=== PATIENT | female | born 1990 | race Caucasian/White ===

== ENCOUNTER 2020-01-02 01:01 | Emergency (ER) | payer BC, OTHER ==
[~2020-01-02] VITALS: Ht 167.7 cm; Wt 120.0 kg
--- NOTE | 2020-01-02 01:24 | ED Back Pain ---
General Stated Complaint: BACK PAIN Source of Information: Patient Exam Limitations: No Limitations History of Present Illness Date Seen by Provider: Jan 02, 2020 Time Seen by Provider: 01:10 Initial Comments The patient is a 29-year-old female who presents for evaluation of right upper back discomfort wrapping around to the side of the chest wall. She states that she has had a cough for the last 2-3 days and after coughing noticed a sudden sharp discomfort. She is concerned that she may have fractured a rib. She says the pain is worse with coughing, breathing deeply, moving or pressing on the area. She does smoke cigarettes and I did encourage her to quit. She denies hemoptysis, shortness of breath, fevers or chills, nausea or vomiting, abdominal pain, dizziness or syncope. She is alert and oriented 4, calm, and appears to be in no distress this time. Location: Other (right upper rib pain) Timing/Duration: 2-3 Days Severity: Moderate Pain/Injury Location: Back, Chest Method of Injury: Other (cough) Associated Symptoms: denies symptoms Allergies and Home Medications Allergies Coded Allergies: No Known Drug Allergies (Unverified , 01/02/20) Patient Home Medication List Home Medication List Reviewed: Yes Review of Systems Constitutional: no symptoms reported EENTM: no symptoms reported Respiratory: cough, other (right upper posterior rib pain) Cardiovascular: no symptoms reported Gastrointestinal: no symptoms reported Genitourinary: no symptoms reported Musculoskeletal: no symptoms reported Skin: no symptoms reported Psychiatric/Neurological: No Symptoms Reported All Other Systems Reviewed Negative Unless Noted: Yes Past Ulyqkjr-Mwilbl-Mkygbt Hx Past Med/Social Hx: Reviewed Nursing Past Med/Soc Hx Patient Social History Recent Foreign Travel: No Contact w/Someone Who Travel: No Physical Exam Vital Signs Vital Signs - First Documented 01/02/20 01:08 Temp 36.5 Pulse 78 Resp 16 B/P (MAP) 140/91 (107) Pulse Ox 97 O2 Delivery Room Air Capillary Refill : Height, Weight, BMI Height: '" Weight: lbs. oz. kg; BMI Method: General Appearance: No Apparent Distress, WD/WN, Obese HEENT: PERRL/EOMI, Pharynx Normal Neck: Full Range of Motion, Non Tender, Supple Cardiovascular: Regular Rate, Rhythm, No Edema, No Murmur Respiratory: Lungs Clear, Normal Breath Sounds, No Accessory Muscle Use, No Respiratory Distress, Other (ttp over posterolateral rib #4-5) Gastrointestinal: Normal Bowel Sounds, No Organomegaly, Non Tender, Soft Back: No CVA Tenderness, No Vertebral Tenderness Extremity: Normal Capillary Refill, Normal Inspection, Non Tender, No Calf Tenderness Neurologic/Psychiatric: Alert, Oriented x3, No Motor/Sensory Deficits, Normal Mood/Affect Skin: Normal Color, Warm/Dry Progress/Results/Core Measures Results/Orders My Orders Orders - CHIDI MOORE DO Ribs 2-3 View Right (01/02/20 01:16) Ketorolac Injection (Toradol Injection) (01/02/20 01:30) Hydrocodone/Apap 5/325 Tablet (Lortab 5 (01/02/20 01:30) Vital Signs/I&O 01/02/20 01:08 Temp 36.5 Pulse 78 Resp 16 B/P (MAP) 140/91 (107) Pulse Ox 97 O2 Delivery Room Air Progress Progress Note : Progress Note @0130 - rib series is unremarkable. The patient's pain is completely reproducible on palpation. The patient has been given a Toradol injection and Carmichaels for extended pain relief as the pharmacies are closed. The patient likely has a intercostal muscle strain. Advised follow-up with her PCP in the next 1-2 days and stopping smoking. Advised the patient to return to the emergency Department immediately for shortness of breath, difficult breathing, new or worsening symptoms. Departure Impression Primary Impression: Rib pain on right side Additional Impression: Intercostal muscle strain Disposition: HOME, SELF-CARE Condition: Stable Departure-Patient Inst. Decision time for Depature: 01:33 Referrals: SELFALLYSON MD (PCP/Family) Primary Care Physician Patient Instructions: Pleuritic Chest Pain, Upper Back Pain (DC) Add. Discharge Instructions: Take the prescribed medicine as needed. Return to the emergency department immediately for new or worsening symptoms. Follow-up with your doctor in the next 1-2 days. Stop smoking. Scripts Hydrocodone/Acetaminophen (HYDROcodone/APAP 5 MG/325 MG TAB) 1 Each Tablet 1 TAB PO Q4-6HR for Pain MDD 10 TABS for 4 Days, #12 TAB Prov: CHIDI MOORE DO 01/02/20 CHIDI MOORE DO Jan 02, 2020 01:24
[2020-01-02] MEDS ORDERED: KETOROLAC 60 MG/2 ML VIAL IM ONE (01:30)
[2020-01-02] MEDS ORDERED: HYDROcodone/APAP 5 MG/325 MG (LORTAB) TAB PO ONE (01:30)
[2020-01-02] MEDS ORDERED: HYDR-4226 PO (01:34)
[2020-01-02 01:38] VITALS: BP 140/91
--- NOTE | 2020-01-02 06:55 | Diagnostic Imaging Report ---
INDICATION: Right posterior rib pain post cough. TECHNIQUE: 3 views right ribs. CORRELATION STUDY: None FINDINGS: No acute displaced right-sided rib fracture deformity. Visualized right lung is clear without evidence for infiltrate, effusion or pneumothorax. IMPRESSION: 1. Negative for acute displaced right rib fracture. Dictated by: Dictated on workstation # [id number]
--- OUTSIDE RECORDS SUMMARY | 2020-01-06 02:33 | XMS REPORT | Continuity of Care Document ---
Author Author [facility] Organization [facility] Address Unknown Phone Unavailable Care Team Providers Care Equalizer Operator Name Role Phone YAZ ROCA DO PCP Insurance Providers Payer Name Policy Number Subscriber Name Relationship [employer] [id number] Gio Escalona Ii S 02 Advance Directives Directive Response Recorded Date/Time Patient Resuscitation Status Full Code 04/29/15 6: 48am Chief Complaint and Reason for Visit Reason for Visit Vaginal delivery Problems Medical Problems Problem Onset Date Status Vaginal delivery Unknown Active Medications Medication Dose Route Sig Days/Qty Instructions Order Date Disc ontinued Date Status Levothyroxine Sodium PO DAILY 04/30/09 Active [Acetaminophen/Codeine] 1-2 Ea PO Q4H PRN Perineal or severe pain 20 Qty 04/30/15 Active Ibuprofen 800 Mg PO EVERY 8 HOURS PRN PRN CRAMPS 30 Qty 0 04/30/15 Active Azithromycin 2 Tab PO DAILY PRN . 04/30/15 Active [tussinex] 1 Tsp PO Every 12 hours as needed PRN COUGH 04/30/15 Active Social History Social History Problem Response Recorded Date/Evangelista e Smoking Status Former smoker 04/29/2015 4:04am Query Response Start Date Stop Date Smoking Status Former smoker Hospital Discharge Instructions Medication Information Medication information Medications taken today: Motrin 800 at 1:50pm Percocet 5/325 at 5:18pm Discharge Instructions Provider Instructions Dismiss Date: Apr 30, 2015 Dismiss: Home Diet: Return to Previous Activity: As Tolerated Physician Follow-up Appt #1: Dr Roca [phone] F/U Appt: One Month Nursing Instructions Follow up Appointment #1 Physician Follow-up Appointment: Dr Roca [id number] Call for Appointment: Yes Comment: One month Diet: Return to Previous Activity: As Tolerated Pain Management Brochure given: Yes Plan of Care Discharge Date 04/30/15 8:25am Disposition 01 HOME, SELF-CARE Instructions/Education Provided OBG Surgical Site Infections (GEN) Prescriptions See Medications Section Functional Status No functional status results. Allergies, Adverse Reactions, Alerts Allergen Type Severity Reaction Status Last Updated No Known Allergies Active Immunizations Name Given Type Pneumonia Vaccine Received No Historical pneumococcal polysaccharide [id number] 04/30/15 Admini stered Vital Signs Acute Vital Signs Vital Response Date/Time Blood Pressure 116/81 mm Hg Blood Pressure Mean 101 mm Hg Blood Pressure Mean 93 mm Hg Temperature (Fahrenheit) 97.9 degrees F (96.0 - 99.9) Temperature (Calculated Celsius) 36.61966 degrees C Temperature Source Oral Temp 97.3 degrees F (96.0 - 99.9) Temperature (Calculated Celsius) 36.80861 degrees C Pulse Pulse Rate (adult) 78 bpm (60 - 100) Pulse Rate (adult) 63 bpm (60 - 100) Respiratory Rate 18 breaths per minute (10 - 20) Respiratory Rate 19 bpm (10 - 20) Results Test Source Date Result Interp. Ref. Range Comments D-Dimer Quantitative (PE/DVT) April 30, 2015 12:05pm 226 ng/m L <230 Results <230 ng/mL yeild a negativepredictability for DVT or PE Alanine Aminotransferase (ALT/SGPT) March 05, 2010 9:09pm 14 U /L N 5-50 ROOM/COMMENTS 04 Albumin March 05, 2010 9:09pm 3.9 gm/dL N 3.2-5.0 ROOM/COMMENTS 04 Albumin/Globulin Ratio March 05, 2010 9:09pm 1.4 N 1.4-2.4 ROOM/COMMENTS 04 Alkaline Phosphatase March 05, 2010 9:09pm 73 U/L N 50-130 ROOM/COMMENTS 04 Amylase Level March 05, 2010 9:09pm 56 U/L N 37-127 ROOM/COMMENTS 04 Anion Gap March 05, 2010 9:09pm 9.7 N 6-13 ROOM/COMMENTS 04 Aspartate Amino Transf (AST/SGOT) March 05, 2010 9:09pm 20 U/L N 5-55 ROOM/COMMENTS 04 BUN/Creatinine Ratio March 05, 2010 9:09pm 17.9 ROOM/COMMENTS 04 Basophils # (Auto) April 28, 2015 3:25pm 0.0 K/uL N 0-0.2 Basophils (%) (Auto) April 28, 2015 3:25pm 0.4 % N 0-1 Blood Urea Nitrogen March 05, 2010 9:09pm 14 mg/dL N 8-25 ROOM/COMMENTS 04 Calcium Level March 05, 2010 9:09pm 8.7 mg/dL N 8.2-10 .6 ROOM/COMMENTS 04 Carbon Dioxide Level March 05, 2010 9:09pm 22 mEq/L N 22-34 ROOM/COMMENTS 04 Chloride Level March 05, 2010 9:09pm 107 mEq/L N 98-11 6 ROOM/COMMENTS 04 Creatinine March 05, 2010 9:09pm 0.78 mg/dL L 0.9-1.6 ROOM/COMMENTS 04 Eosinophils # (Auto) April 28, 2015 3:25pm 0.1 K/uL N 0-0.8 Eosinophils (%) (Auto) April 28, 2015 3:25pm 1.1 % N 0-7.0 Globulin March 05, 2010 9:09pm 2.8 gm/dL N 2.0-3.0 ROOM/COMMENTS 04 Glomerular Filtration Rate Calc March 05, 2010 9:0 9pm Test not performedPATIENT LESS THAN 19 YEARS OLD Hematocrit April 30, 2015 5:15am 31.5 % L 38.0-47. 0 COMMENTS? HH in morning following delivery or at least 12 hour post deliver Hemoglobin April 30, 2015 5:15am 10.6 g/dL DL 12.0-16. 0 COMMENTS? HH in morning following delivery or at least 12 hour post deliver Immature Blood Cells March 05, 2010 9:09pm 0.2 X10.e3/U N 0-0.4 ROOM/COMMENTS 04 Immature Granulocyte # (Auto) April 28, 2015 3:25pm 0.05 K/uL N 0-0.40 Immature Granulocyte % (Auto) April 28, 2015 3:25pm 0.5 % N 0-0.5 Lipase March 05, 2010 9:09pm 22 U/L N 8-57 ROOM/COMMENTS 04 Lymphocytes # (Auto) April 28, 2015 3:25pm 1.9 K/uL N 0.9-5.2 Lymphocytes (%) (Auto) April 28, 2015 3:25pm 17.6 % N 16.0-44.0 Mean Corpuscular Hemoglobin April 28, 2015 3:25pm 28.9 pg N 26.0-33.0 Mean Corpuscular Hemoglobin Concent April 28, 2015 3:25pm 3 3.5 g/dL N 31.0-36.0 Mean Corpuscular Volume April 28, 2015 3:25pm 86.2 fL N 82.0-100.0 Mean Platelet Volume April 28, 2015 3:25pm 11.5 fL H 7.0-11.0 Monocytes # (Auto) April 28, 2015 3:25pm 0.5 K/uL N 0.16-1.0 Monocytes (%) (Auto) April 28, 2015 3:25pm 4.9 % N 2.0-9.0 Neutrophils # (Auto) April 28, 2015 3:25pm 8.4 K/uL H 1.9-8.0 Neutrophils (%) (Auto) April 28, 2015 3:25pm 75.5 % H 42.0-75.0 Nucleated Red Blood Cells # April 28, 2015 3:25pm 0.00 K/uL N 0.0-0.012 Nucleated Red Blood Cells % April 28, 2015 3:25pm 0.0 /100WBC N 0-0 Platelet Count April 28, 2015 3:25pm 199 K/uL N 130- 400 Potassium Level March 05, 2010 9:09pm 3.7 mEq/L N 3.5- 5.1 ROOM/COMMENTS 04 RDW Standard Deviation April 28, 2015 3:25pm 45.0 fL N 36.4-46.3 Random Glucose March 05, 2010 9:09pm 113 mg/dL N 65-11 5 ROOM/COMMENTS 04 Red Blood Count April 28, 2015 3:25pm 4.26 M/uL N 4.2 0-5.40 Red Cell Distribution Width April 28, 2015 3:25pm 14.6 % H 11.5-14.5 Sodium Level March 05, 2010 9:09pm 135 mEq/L N 133-145 ROOM/COMMENTS 04 Total Bilirubin March 05, 2010 9:09pm 0.5 mg/dL N 0.1- 1.3 ROOM/COMMENTS 04 Total Protein March 05, 2010 9:09pm 6.7 gm/dL N 6.1-8. 2 ROOM/COMMENTS 04 Urine Amorphous Sediment December 01, 2010 2:09pm 4+ Urine Appearance April 29, 2015 12:40am Clear HAS SPECIMEN BEEN OBTAINED/COLLECTED? Y Urine Bacteria December 01, 2010 2:09pm Trace NEGATIVE Urine Bilirubin April 29, 2015 12:40am 1+ NE GATIVE HAS SPECIMEN BEEN OBTAINED/COLLECTED? Y Urine Casts December 01, 2010 2:09pm None /lpf NON E Urine Color April 29, 2015 12:40am Yellow HAS SPECIMEN BEEN OBTAINED/COLLECTED? Y Urine Crystals December 01, 2010 2:09pm None /hpf NONE Urine Epithelial Cells December 01, 2010 2:09pm Few /lpf Urine Glucose (UA) April 29, 2015 12:40am Negative NEGATIVE HAS SPECIMEN BEEN OBTAINED/COLLECTED? Y Urine Human Chorionic Gonadotropin March 05, 2010 10:08pm Nega tive NEG ROOM/COMMENTS 04 Urine Ketones April 29, 2015 12:40am 1+ NEGA TIVE HAS SPECIMEN BEEN OBTAINED/COLLECTED? Y Urine Leukocyte Esterase April 29, 2015 12:40am Negative NEGATIVE HAS SPECIMEN BEEN OBTAINED/COLLECTED? Y Urine Mucus December 01, 2010 2:09pm None NEG ATIVE Urine Nitrate April 29, 2015 12:40am Negative NEGA TIVE HAS SPECIMEN BEEN OBTAINED/COLLECTED? Y Urine Occult Blood April 29, 2015 12:40am Negative NEGATIVE HAS SPECIMEN BEEN OBTAINED/COLLECTED? Y Urine Other December 01, 2010 2:09pm Not Performed Urine Protein April 29, 2015 12:40am Trace NEGA TIVE HAS SPECIMEN BEEN OBTAINED/COLLECTED? Y Urine RBC December 01, 2010 2:09pm None /hpf NONE Urine Specific [place] April 29, 2015 12:40am 1.025 1.005-1.030 HAS SPECIMEN BEEN OBTAINED/COLLECTED? Y Urine Urobilinogen April 29, 2015 12:40am 2.0 E.U./dL 0.2-1.0 HAS SPECIMEN BEEN OBTAINED/COLLECTED? Y Urine WBC December 01, 2010 2:09pm 0-1 /hpf NONE Urine WBC Clumps December 01, 2010 2:09pm None NONE Urine pH April 29, 2015 12:40am 6.5 4.5-8.0 HAS SPECIMEN BEEN OBTAINED/COLLECTED? Y White Blood Count April 28, 2015 3:25pm 11.1 K/uL H 5 .0-10.0 Urine Culture Urine,Clean Catch December 01, 2010 2:09pm Procedures Procedure Status Date Provider(s) ligation of fallopian tube completed 04/29/15 INOCENTE NICOLAS M.D Encounters Encounter Location Date/Time Discharged Inpatient Katherine Feng [facility] 04/28/15 1 0:25pm Recent Diagnosis Vaginal delivery
== END 2020-01-02 01:39 | disposition home or self-care (01) ==
LOC: ER FS 01:05
DX: S29.011A Strain of muscle and tendon of front wall of thorax, initial encounter (principal); F17.210 Nicotine dependence, cigarettes, uncomplicated; X58.XXXA Exposure to other specified factors, initial encounter
CPT/HCPCS: 71100

== ENCOUNTER → 2021-04-13 | Outpatient (CLI) | payer SELFPAY ==
[~2021-04-13] MED LIST: HYDR-4226 PO
--- NOTE | 2021-04-13 14:01 | Diagnostic Imaging Report ---
CLINICAL INDICATION: Patient with chronic low back pain with right leg pain. EXAM: MRI of the lumbar spine performed without IV contrast. Sagittal T2, sagittal T1, sagittal T2 fat-sat, axial T1, and axial T2. COMPARISON: None. FINDINGS: There is chronic bilateral L5 spondylolysis with no marrow edema or adjacent soft tissue inflammatory changes. There is 6 mm of grade 1 anterolisthesis of L5 on S1. There is uncovering of the posterior aspect of the disc with broad posterior disk herniation which extends into the foraminal regions bilaterally (right side more than the left). There is severe central canal stenosis with encroachment upon the exiting right L5 nerve root. There is also severe left neuroforaminal narrowing with encroachment upon the exiting left L5 nerve root. There are mild to moderate bilateral degenerative changes/facet arthropathy. There is mild to moderate loss of disk space height and low T2 degenerative disk signal changes. There is no significant central canal narrowing at the L5-S1 level. There is a small right paracentral T11-T12 disk bulge which causes no significant central canal or neuroforaminal narrowing. There is a small intraosseous hemangioma within the L1 vertebra. There are minimal Modic type II degenerative signal changes anteriorly at the T11-T12 region. The remainder of the lumbar spine shows that the intervertebral disk heights are maintained. There are chronic Schmorl's nodes involving the T11 through the L5 levels with no marrow edema. There is no significant paraspinal soft tissue abnormality. The visualized portions of the distal thoracic spinal cord, conus medullaris, and cauda equina nerve roots are unremarkable. The conus medullaris tip is seen at the lower L1 vertebral body level. IMPRESSION: 1: There is chronic bilateral L5 spondylolysis with associated grade 1 anterolisthesis of L5 on S1. There is associated broad posterior disk herniation which extends into the foraminal regions bilaterally. There is severe bilateral neuroforaminal narrowing with encroachment upon the exiting bilateral L5 nerve roots. 2: There is a small T11-T12 right paracentral disk bulge. There is no significant central spinal canal or neuroforaminal narrowing. 3: The remainder of the lumbar spine shows no other significant abnormality. Dictated by: Dictated on workstation # [id number]
== END ==
LOC: RAD 10:41
PROVIDERS: ATTEND Family Medicine
DX: M47.26 Other spondylosis with radiculopathy, lumbar region (principal); M51.24 Other intervertebral disc displacement, thoracic region; M51.27 Other intervertebral disc displacement, lumbosacral region; M48.061 Spinal stenosis, lumbar region without neurogenic claudication; M43.17 Spondylolisthesis, lumbosacral region
CPT/HCPCS: 72148

== ENCOUNTER 2021-05-19 22:39 | Emergency (ER) | payer SELFPAY ==
[~2021-05-19] VITALS: Ht 165.1 cm; Wt 129.3 kg
[2021-05-19 22:45] VITALS: BP 137/87
[2021-05-19] MEDS ORDERED: HYDROcodone/APAP 5 MG/325 MG (LORTAB) TAB PO ONE (23:00)
--- NOTE | 2021-05-19 23:00 | ED Upper Extremity ---
General Chief Complaint: Trauma-Non Activation Stated Complaint: LEFT HAND AND LEG INJ Nursing Triage Note: LEFT HAND AND LEFT THIGH PAIN AFTER FALLING OFF PORCH AT HOME Source: patient History of Present Illness Date Seen by Provider: May 19, 2021 Time Seen by Provider: 22:35 Allergies and Home Medications Allergies Coded Allergies: No Known Drug Allergies (Unverified , 01/02/20) Home Medications Hydrocodone/Acetaminophen 1 Each Tablet, 1 TAB PO Q4-6HR Prescribed by: CHIDI MOORE on 01/02/20 0134 Patient Home Medication List Home Medication List Reviewed: Yes Past Bvxlhwh-Mneyyk-Skelyz Hx Patient Social History Tobacco Use?: No Smoking Status: Never a Smoker Substance use?: No Alcohol Use?: No Seasonal Allergies Seasonal Allergies: No Past Medical History Surgeries: Yes Tubal Ligation Respiratory: No Cardiac: No Neurological: No 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 oz. kg; 47.00 BMI Method: Progress/Results/Core Measures Results/Orders My Orders Orders - PRABHAKAR PERRY DO Wrist 3 View Left (05/19/21 22:51) Hydrocodone/Apap 5/325 Tablet (Lortab 5 (05/19/21 23:00) Ice: Apply To Affected Area (05/19/21 22:51) Medications Given in ED Current Medications Medications Dose Ordered Sig/Bing Route Start Time Stop Time Status Last Admin Dose Admin Acetaminophen/ Hydrocodone Bitart 1 ea ONCE ONCE PO 05/19/21 23:00 05/19/21 23:01 05/19/21 22:57 1 EA Vital Signs/I&O 05/19/21 22:45 Temp 36.9 Pulse 97 Resp 17 B/P (MAP) 137/87 (104) O2 Delivery Room Air Blood Pressure Mean: 104 Departure Impression Primary Impression: Left wrist sprain Disposition: 01 HOME, SELF-CARE Condition: Stable Departure-Patient Inst. Decision time for Depature: 23:00 Referrals: SELF,ALLYSON CASAS (PCP/Family) Primary Care Physician Patient Instructions: Wrist Sprain ED Add. Discharge Instructions: Please wear splint, apply ice, take ibuprofen for pain. Contact the ED tomorrow morning for official x-ray result. Follow-up with your PCP next week if symptoms persist. All discharge instructions reviewed with patient and/or family. Voiced understanding. PRABHAKAR PERRY DO May 19, 2021 23:00
--- NOTE | 2021-05-20 06:01 | Diagnostic Imaging Report ---
INDICATION: Left wrist injury from a fall 3 views of the left wrist show no fracture, dislocation or other acute abnormalities. IMPRESSION: Negative left wrist Dictated by: Dictated on workstation # [id number]
== END 2021-05-19 23:05 | disposition home or self-care (01) ==
LOC: EDUNIT# 22:39 → ER FS 22:40
DX: S63.502A Unspecified sprain of left wrist, initial encounter (principal); W13.0XXA Fall from, out of or through balcony, initial encounter
CPT/HCPCS: 73110

== ENCOUNTER 2022-09-12 08:24 | Emergency (ER) | payer MEDICAID, OTHER ==
[~2022-09-12] VITALS: Ht 167.7 cm; Wt 107.9 kg
[2022-09-12] MEDS ORDERED: LIDOCAINE 1% INJ 20 ML VIAL INJ STA (08:29)
[2022-09-12] MEDS ORDERED: LIDOCAINE 1% INJ 20 ML VIAL ONE (08:29)
[2022-09-12] MEDS ORDERED: TETANUS,DIPTH,PERTUSS P/F (BOOSTRIX) 0.5 ML VIAL IM ONE (08:30)
--- NOTE | 2022-09-12 08:31 | ED Fall/Injury ---
General Stated Complaint: LEG FOREIGN OBJECT Source: patient History of Present Illness Date Seen by Provider: Sep 12, 2022 Time Seen by Provider: 08:24 Initial Comments 32-year-old female presenting with cut to her left thigh. She was coming down from a tree stand and was on the second to the last rung when she slipped and fell. She had been carrying arrows in 1 had cut into her leg through 3 layers of clothing. She denies any other injuries. She did not hit her head or get knocked out. She denies any other pain. She has some burning pain to the laceration. She is unsure of her last tetanus booster. She was able to control bleeding with holding pressure. Occurred: just prior to arrival Severity: mild Injuries/Pain Location: lower extremity (Left thigh) Context: slipped Loss of Consciousness: no loss of consciousness Modifying Factors: Worse With Movement Associated Symptoms (Fall): No Abdominal Pain, No Chest Pain, No Confusion, No Dizziness, No Headache, No Lightheadedness, No Muscle Spasms, No Neck Pain, No Ringing in Ears, No Seizures, No Shortness of Air, No Slurred Speech, No Trouble Walking, No Vision Changes Allergies and Home Medications Allergies Coded Allergies: No Known Drug Allergies (Unverified , 01/02/20) Patient Home Medication List Home Medication List Reviewed: Yes Cephalexin (Cephalexin) 500 Mg Capsule, 500 MG PO TID Prescribed by: BROOKS JOYCE on 09/12/22 0912 Hydrocodone/Acetaminophen (Hydrocodone/Acetaminophen 5 MG/325 MG TAB) 1 Each Tablet, 1 TAB PO Q4-6HR Prescribed by: CHIDI MOORE on 01/02/20 0134 Review of Systems Review of Systems Constitutional: No chills, No fever Eyes: No Symptoms Reported Ears, Nose, Mouth, Throat: no symptoms reported Respiratory: no symptoms reported Cardiovascular: no symptoms reported Gastrointestinal: no symptoms reported Genitourinary: no symptoms reported Musculoskeletal: see HPI Skin: see HPI Psychiatric/Neurological: Denies Numbness, Denies Paresthesia Past [place]pp[place]-Kwhfey Hx Patient Social History Tobacco Use?: No Use of E-Cig and/or Vaping dev: No Substance use?: No Seasonal Allergies Seasonal Allergies: No Past Medical History Surgery/Hospitalization HX: Sciatica, bipolar depression and anxiety, chronic low back pain Surgeries: Yes Tubal Ligation Respiratory: No Cardiac: No 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 oz. 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 as tested, no motor/sensory deficits, alert, oriented x 3 Skin: warm/dry Kalpesh Coma Score Best Eye Response: (4) Open Spontaneously Best Verbal Response: (5) Oriented Best Motor Response: (6) Obeys Commands Harlan Total: 15 Procedures/Interventions Wound Location: Lower Extremities (left leg just above knee medial aspect) Wound Length (cm): 2.2 Wound's Depth, Shape: linear, sub Q Wound Explored: clean Irrigated w/ Saline (ccs): 250 Betadine Prep?: Yes Anesthesia: 1% Lidocaine Volume Anesthetic (ccs): 6 Suture: Ethlion Suture Size: 4-0 Number of Sutures: 5 Sterile Dressing Applied?: Yes Progress After obtaining verbal consent from the patient the wound was anesthetized with 6 mL of 1% plain lidocaine. Then using sterile water and Betadine solution the wound was irrigated with 250 mL of solution. There were no foreign body seen or visualized. Patient tolerated this well without any immediate complication. Using 4-0 Ethilon a total of 5 simple interrupted stitches were used to approximate wound edges. Wound edges were well approximated. Patient had no immediate complication with the procedure. Counseled on follow-up and return precautions as well as management of stitches. Progress/Results/Core Measures Results/Orders My Orders Orders - BROOKS JOYCE MD Dipht,Pertuss(Acell),Tet Adult (Boostrix (09/12/22 08:30) Lidocaine 1% Inj 20 Ml (Xylocaine 1% Inj (09/12/22 08:29) Lidocaine 1% Inj 20 Ml (Xylocaine 1% Inj (09/12/22 08:29) Medications Given in ED Current Medications Medications Dose Ordered Sig/Bing Route Start Time Stop Time Status Last Admin Dose Admin Diphtheria/ Tetanus/Acell Pertussis 0.5 ml ONCE ONCE IM 09/12/22 08:30 09/12/22 08:31 DC 09/12/22 09:15 0.5 ML Vital Signs/I&O 09/12/22 08:25 Temp 36.0 Pulse 65 Resp 20 B/P (MAP) 137/87 (104) Pulse Ox 98 O2 Delivery Room Air Progress Progress Note : Progress Note Update tetanus booster as she is unsure of the last 1 that she got. Verbally consented for repair of laceration and tolerated procedure well without any immediate complication. Used 4-[address] 5 simple interrupted stitches to repair the wound. Counseled on wound management and follow-up and return precautions. As the room had cut through several layers of clothing before cutting her Will place patient on a short course of cephalexin to try and help p rophylactically prevent infection. Counseled to use ice and elevation to help with pain and swelling. 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 Stitches out in 10 to 14 days or be seen sooner if concern for infection. Departure Impression Primary Impression: Laceration without foreign body, left thigh, initial encounter Additional Impression: Fall on and from ladder causing accidental injury Qualified Codes: W11.XXXA - Fall on and from ladder, initial encounter Disposition: 01 HOME, SELF-CARE Condition: Stable Departure-Patient Inst. Decision time for Depature: 09:11 Referrals: SELF,ALLYSON CASAS (PCP) Primary Care Physician Patient Instructions: Laceration Repair With Stitches ED, Wound Care ED Add. Discharge Instructions: Keep wound clean and dry for the first 24 hours. After that you may remove the dressing and clean with soap and water. Do not soak the wound. After the first 24 hours you could apply a thin layer of antibiotic ointment and cover with a Band-Aid. Especially if the wound is going to be rubbing against clothes make sure that it is covered so it does not get irritated. If she sees signs of infection such as redness streaking up your leg, fever over 101 Fahrenheit, pus draining from the wound return to be seen immediately as you may need IV antibiotics. Take the full course of oral antibiotics to help with preventing infection. You may take acetaminophen and/or ibuprofen if needed for pain. Apply ice 15 to 20 minutes every few hours as needed to help with pain and swelling. While working you may consider using an Sohail bandage or something for compression to help limit bruising and swelling. Scripts Cephalexin (Cephalexin) 500 Mg Capsule 500 MG PO TID for leg laceration for 7 Days, #21 CAP 0 Refills Prov: BROOKS JOYCE MD 09/12/22 BROOKS JOYCE MD Sep 12, 2022 08:31
[2022-09-12] MEDS ORDERED: CEPH500C PO (09:12)
[2022-09-12 09:32] VITALS: BP 137/87
== END 2022-09-12 09:33 | disposition home or self-care (01) ==
LOC: EDUNIT# 08:24 → ER FS 08:26
DX: S71.112A Laceration without foreign body, left thigh, initial encounter (principal); Z23 Encounter for immunization; Z28.310 Unvaccinated for COVID-19; W11.XXXA Fall on and from ladder, initial encounter
CPT/HCPCS: 12001; 90715

== ENCOUNTER → 2022-12-20 | Outpatient (CLI) | payer MEDICAID ==
[~2022-12-20] MED LIST changes: +CEPH500C PO
--- NOTE | 2022-12-20 12:11 | Diagnostic Imaging Report ---
INDICATION: Heel pain EXAMINATION: Left ankle 12/20/2022 FINDINGS: 3 views of the ankle. There is a prominent os trigonum. No acute fractures or dislocations with the ankle mortise intact. Soft tissues unremarkable. IMPRESSION: 1. No acute process. Dictated by: Dictated on workstation # [id number]
== END ==
LOC: RAD FS 11:43
PROVIDERS: ATTEND Family Medicine
DX: M79.672 Pain in left foot (principal)
CPT/HCPCS: 73610